=== PATIENT | female | born 1975 | race Caucasian/White ===

== ENCOUNTER 2016-08-10 12:56 | Emergency (ER) | payer OTHER ==
[2016-08-10 13:41] LABS: BASOPHIL 0.1 % (0-2); EOSINOPHIL 0 % (0-5); HCT 41.7 % (37.0-47.0); HGB 14.1 g/dl (12.5-16.0); MCH 31.8 pg (25.0-31.0); MCHC 33.8 g/dL (32.0-36.0); MCV 94.1 fL (78.0-100.0); MPV 10.6 fL (6.0-9.5); NEUTROPHIL 81.9 % (41-80); PLT 424 K/uL (150-400); RBC 4.43 M/uL (4.20-5.40); RDW 13.8 % (11.5-14.0)
[2016-08-10 13:45] LABS: LACTIC ACID 1.5 mmol/L (0.5-2.2)
[2016-08-10 13:47] LABS: WBC 22.4 K/uL (4.0-10.5)
[2016-08-10 13:49] LABS: ALBUMIN 4.8 g/dL (3.5-5.0); BILIRUBIN - TOTAL 0.2 mg/dL (0.1-1.0); CREATININE 0.8 mg/dL (0.5-1.0); GLOBULIN (CALCULATION) 3.4 g/dL (2.2-4.2); POTASSIUM 3.6 mmol/L (3.5-5.1); TOTAL PROTEIN 8.2 g/dL (6.4-8.3)
[2016-08-10 14:41] LABS: BILIRUBIN NEGATIVE (NEGATIVE); BLOOD NEGATIVE Ery/uL (NEGATIVE); CLARITY CLEAR (CLEAR); COLOR YELLOW (YELLOW); GLUCOSE (U) NORMAL (NORMAL); KETONE (U) NEGATIVE (NEGATIVE); LEUKOCYTES NEGATIVE Leu/uL (NEGATIVE); NITRITE NEGATIVE (NEGATIVE); PROTEIN NEGATIVE (NEGATIVE); SPECIFIC GRAVITY <=1.005 (1.001-1.030); UROBILINOGEN 0.2 mg/dL (0.2-1.0)
[2016-08-10 15:57] LABS: CLARITY (FLUID) CLEAR; COLOR (FLUID) COLORLESS
[2016-08-10 15:58] LABS: RBC (FLUID) 1 u/L; WBC (FLUID) 0 u/L
== END 2016-08-10 17:34 | disposition home or self-care (01) ==
LOC: FER 12:56
PROVIDERS: Internal Medicine
DX: R51 Headache (principal); G89.29 Other chronic pain; R29.700 NIHSS score 0; I10 Essential (primary) hypertension; E03.9 Hypothyroidism, unspecified; K21.9 Gastro-esophageal reflux disease without esophagitis; Z88.1 Allergy status to other antibiotic agents; Z88.5 Allergy status to narcotic agent; Z88.8 Allergy status to other drugs, medicaments and biological substances; Z79.899 Other long term (current) drug therapy
CPT/HCPCS: 36415; 70450; 80053; 80162; 81003; 82945; 83605; 84155; 85025; 87040; 87070; 87205; 89051; J1170; J1885; J2765

== ENCOUNTER 2016-08-12 13:56 | Emergency (ER) | payer OTHER ==
[2016-08-12 15:28] LABS: BASOPHIL 0.4 % (0-2); EOSINOPHIL 1.1 % (0-5); HCT 42.3 % (37.0-47.0); HGB 14.1 g/dl (12.5-16.0); LYMPHOCYTE 30.9 % (15-48); MCH 32.2 pg (25.0-31.0); MCHC 33.3 g/dL (32.0-36.0); MCV 96.6 fL (78.0-100.0); MONOCYTE 9.5 % (0-12); MPV 10.4 fL (6.0-9.5); NEUTROPHIL 58.1 % (41-80); PLT 326 K/uL (150-400); RBC 4.38 M/uL (4.20-5.40); RDW 14.2 % (11.5-14.0)
[2016-08-12 15:35] LABS: WBC 12.4 K/uL (4.0-10.5)
[2016-08-12 15:48] LABS: CREATININE 1.1 mg/dL (0.5-1.0); LACTIC ACID 0.9 mmol/L (0.5-2.2); POTASSIUM 3.9 mmol/L (3.5-5.1)
== END 2016-08-12 17:00 | disposition home or self-care (01) ==
LOC: FER 13:56
PROVIDERS: Internal Medicine
DX: I10 Essential (primary) hypertension (principal); E03.9 Hypothyroidism, unspecified; Z88.1 Allergy status to other antibiotic agents; Z88.5 Allergy status to narcotic agent; Z88.8 Allergy status to other drugs, medicaments and biological substances; Z79.899 Other long term (current) drug therapy
CPT/HCPCS: 36415; 80048; 83605; 85025; 85651; J1885; J2060; J2765